=== PATIENT | male | born 1975 | race Hispanic/Latino ===

== ENCOUNTER 2017-11-03 08:50 | Inpatient (IN) | payer OTHER ==
[2017-10-25 09:56] LABS: BASOPHILS % (AUTO) 0.1 % (0.0-5.0); EOSINOPHILS % (AUTO) 3.1 % (0.0-8.0); HEMATOCRIT 43.3 % (42-54); LYMPHOCYTES % (AUTO) 18.2 % (21.0-51.0); MEAN CORPUSCULAR HEMOGLOBIN 30.8 pg (27.0-33.0); MEAN CORPUSCULAR VOLUME 88.1 fL (79-99); MONOCYTES % (AUTO) 5.5 % (3.0-13.0); NEUTROPHILS % (AUTO) 73.1 % (40.0-77.0); PLATELET COUNT (AUTO) 266 K/uL (130-400); RED BLOOD CELL COUNT(AUTO) 4.92 MIL/uL (4.50-6.20); RED CELL DISTRIBUTION WIDTH 13.1 % (11.0-15.5); WHITE BLOOD COUNT (AUTO) 10.2 K/uL (4.8-10.8)
[2017-10-25 10:18] LABS: CREATININE 0.8 mg/dL (0.5-1.5); POTASSIUM 4.1 mmol/L (3.5-5.1)
[2017-10-25 10:30] VITALS: BP 140/79
[2017-11-03] VITALS (30 sets, daily range): BP systolic 109–138; BP diastolic 60–95
[~2017-11-03] VITALS: Ht 165.1 cm; Wt 108.0 kg
[~2017-11-03 08:50] MED LIST: FLUO20CA30 PO
[2017-11-03] MEDS: CEFAZOLIN SODIUM 1 GM VIAL IVP SCH ×4 (09:15→20:35)
[2017-11-03] MEDS ORDERED: WATER FOR INJECTION,STERILE 20 ML VIAL ONE (09:26)
[2017-11-03] MEDS ORDERED: SODIUM CHLORIDE 0.9% 1000ML 1,000 ML IV ONE (09:27)
[2017-11-03] MEDS ORDERED: OCTYL 2-CYANOACRYLATE 1 EACH TP ONE (11:24)
[2017-11-03] MEDS ORDERED: BUPIVACAINE/PF 0.5% 30ML VIAL ONE ×2 (11:24→11:30)
[2017-11-03] MEDS ORDERED: LIDOCAINE PF 2% 5ML ABBOJECT ONE (11:26)
[2017-11-03] MEDS ORDERED: GLYCOPYRROLATE 0.2 MG/ML 5 ML VIAL ONE (11:26)
[2017-11-03] MEDS ORDERED: SUCCINYLCHOLINE 200MG/10ML SYR ONE (11:26)
[2017-11-03] MEDS ORDERED: DEXAMETHASONE SOD PHOSPHATE 10MG/ML 1ML VIAL ONE (11:26)
[2017-11-03] MEDS ORDERED: ONDANSETRON HCL 4 MG/2 ML VIAL ONE (11:26)
[2017-11-03] MEDS ORDERED: NEOSTIGMINE METHYLSULFATE 1MG/ML IV ONE (11:26)
[2017-11-03] MEDS ORDERED: MIDAZOLAM HCL 1 MG/ML 2ML VIAL ONE (11:27)
[2017-11-03] MEDS ORDERED: PROPOFOL 10 MG/ML 20ML VIAL IV ONE (11:27)
[2017-11-03] MEDS ORDERED: FENTANYL CITRATE PF 50 MCG/1 ML 2ML VIAL ONE ×2 (11:27→13:40)
[2017-11-03] MEDS: LACTATED RINGERS 1000ML 1,000 ML IV SCH ×2 (12:49→21:44)
[2017-11-03] MEDS ORDERED: CEFAZOLIN 2GM / 50 ML 2 GM/50 ML BAG IV SCH (13:00)
[2017-11-03] MEDS ORDERED: ONDANSETRON HCL 4 MG/2 ML VIAL IVP PRN (13:00)
[2017-11-03] MEDS ORDERED: MORPHINE SULFATE 5 MG/ML VIAL IVP PRN (13:00)
[2017-11-03] MEDS ORDERED: MEPERIDINE-PF 25 MG/ML SYG ONE ×2 (13:19→13:51)
[2017-11-03] MEDS ORDERED: MORPHINE SULFATE 10 MG/ML 1ML SYG ONE (15:39)
[2017-11-03] MEDS ORDERED: WATER FOR INJECTION,STERILE 5 ML VIAL ONE (20:18)
[2017-11-03] MEDS: FAMOTIDINE/PF 20 MG/2 ML VIAL IV SCH (20:35)
[2017-11-03] MEDS: ENOXAPARIN SODIUM 30 MG/0.3 ML SQ SCH (20:36)
[2017-11-03] MEDS: KETOROLAC TROMETHAMINE 30MG/ML IV SCH (21:44)
[2017-11-04] MEDS: KETOROLAC TROMETHAMINE 30MG/ML IV SCH ×3 (03:00→15:29)
[2017-11-04 03:40] LABS: BASOPHILS % (AUTO) 0.8 % (0.0-5.0); EOSINOPHILS % (AUTO) 0.4 % (0.0-8.0); HEMATOCRIT 35.6 % (42-54); LYMPHOCYTES % (AUTO) 11.9 % (21.0-51.0); MEAN CORPUSCULAR HEMOGLOBIN 31.3 pg (27.0-33.0); MEAN CORPUSCULAR HGB CONC 35.9 g/dL (32.0-36.0); MEAN CORPUSCULAR VOLUME 87.2 fL (79-99); MONOCYTES % (AUTO) 6.8 % (3.0-13.0); NEUTROPHILS % (AUTO) 80.1 % (40.0-77.0); NUCLEATED RED BLOOD CELLS 0.1 % (0.0-0.19); PLATELET COUNT (AUTO) 254 K/uL (130-400); RED BLOOD CELL COUNT(AUTO) 4.08 MIL/uL (4.50-6.20); RED CELL DISTRIBUTION WIDTH 12.6 % (11.0-15.5)
[2017-11-04 03:41] VITALS: BP 139/76
[2017-11-04 03:46] LABS: CREATININE 0.6 mg/dL (0.5-1.5); POTASSIUM 3.4 mmol/L (3.5-5.1)
[2017-11-04] MEDS ORDERED: CEFAZOLIN SODIUM 1 GM VIAL IVP SCH (04:45)
[2017-11-04] MEDS ORDERED: WATER FOR INJECTION,STERILE 20 ML VIAL ONE (04:59)
[2017-11-04] MEDS ORDERED: CEFAZOLIN SODIUM 1 GM VIAL ONE (04:59)
[2017-11-04] MEDS: LACTATED RINGERS 1000ML 1,000 ML IV SCH (05:23)
[2017-11-04] MEDS ORDERED: DIATR MEGLU/DIATRIZOATE SODIUM 30 ML BOTTLE PO ONE (07:53)
[2017-11-04 08:00] VITALS: BP 136/72
[2017-11-04] MEDS: FAMOTIDINE/PF 20 MG/2 ML VIAL IV SCH (10:54)
[2017-11-04] MEDS: ENOXAPARIN SODIUM 30 MG/0.3 ML SQ SCH (10:57)
[2017-11-04 11:43] VITALS: BP 142/75
[2017-11-04 16:00] VITALS: BP 132/68
== END 2017-11-04 18:45 | disposition home or self-care (01) | DRG 621 ==
LOC: DAHIP 08:50 → EDSTATUS 10:21 → 3AH 17:05
PROVIDERS: ADMIT Surgery; ATTEND Surgery
PROC: 0DB64Z3 Excision of Stomach, Percutaneous Endoscopic Approach, Vertical (ICD-10-PCS; principal; 2017-11-03 11:25)
DX: E66.01 Morbid (severe) obesity due to excess calories (principal); F41.9 Anxiety disorder, unspecified; K66.0 Peritoneal adhesions (postprocedural) (postinfection); Z83.3 Family history of diabetes mellitus; Z82.49 Family history of ischemic heart disease and other diseases of the circulatory system; Z68.39 Body mass index [BMI] 39.0-39.9, adult
CPT/HCPCS: 36415; 74240; 80048; 82948; 85025; 86850; 86900; 86901; 88307; 88342; 94760; 97802; A4218; A4606; J0330; J0690; J1100; J1650; J1885; J2001; J2175; J2250; J2270; J2405; J2704; J2710; J3010; J3490; J7030; J7120; Q9963

== ENCOUNTER 2024-01-23 10:45 | Day surgery (SDC) | payer OTHER ==
[2024-01-23] VITALS (10 sets, daily range): BP systolic 83–170; BP diastolic 50–70; PULSE 54–62; RESP 14–17
[~2024-01-23] VITALS: Ht 165.1 cm; Wt 81.6 kg
[~2024-01-23 10:45] MED LIST changes: -FLUO20CA30 PO; +FLUO40CA49 PO; +GABA800T9 PO; +HYDR-3422 PO; +TRAZ-187 PO
[2024-01-23] MEDS: 0.9%NACL 1000ML 1,000 ML IV ONE (12:16)
[2024-01-23] MEDS ORDERED: PROPOFOL 10 MG/ML 20ML VIAL IV ONE ×3 (12:58→13:06)
[2024-01-23] MEDS ORDERED: LIDOCAINE PF 100MG/5ML (2%) SYRINGE 5ML ONE (13:07)
== END 2024-01-23 14:40 | disposition home or self-care (01) ==
LOC: DAH 10:45 → ENDO 10:45
PROVIDERS: ATTEND Internal Medicine Gastroenterology
DX: Z12.11 Encounter for screening for malignant neoplasm of colon (principal); K57.30 Diverticulosis of large intestine without perforation or abscess without bleeding; K64.0 First degree hemorrhoids; F17.290 Nicotine dependence, other tobacco product, uncomplicated; Z98.84 Bariatric surgery status; Z98.890 Other specified postprocedural states; Z82.49 Family history of ischemic heart disease and other diseases of the circulatory system; Z83.3 Family history of diabetes mellitus; Z83.438 Family history of other disorder of lipoprotein metabolism and other lipidemia; Z72.89 Other problems related to lifestyle
CPT/HCPCS: 45378; J7030 ×2; J2001; J2704 ×3; A4620; A4215 ×2; A4223; A7002; A4222; A4221; A4663; A4606; J3490